=== PATIENT | female | born 1985 | race Caucasian/White ===

== ENCOUNTER → 2016-10-27 | Outpatient (CLI) | payer OTHER ==
[~2016-10-27] MED LIST: ACET-1256 PO; AZITTAB PO; CEFT1INJ57 IM; ONDA4TAB9 PO
[2016-10-27 10:07] LABS: CHOLESTEROL 257 mg/dl (0-200); GLUCOSE,FASTING 90 mg/dl (70-99); TRIGLYCERIDES 157 mg/dl (0-150); VERY LOW DENSITY LIPOPROT CALC 31 mg/dl
[2016-10-27 10:17] LABS: CHOLESTEROL/HDL RATIO 7.1; HDL CHOLESTEROL 36 mg/dl
== END | disposition home or self-care (01) ==
LOC: C.LAB 08:07
PROVIDERS: ATTEND Physician Assistant Medical
DX: Z00.00 Encounter for general adult medical examination without abnormal findings (principal)

== ENCOUNTER → 2017-09-28 | Outpatient (CLI) | payer OTHER ==
[~2017-09-28] MED LIST changes: +FIBE1CHW PO; +MULT20CH PO
[2017-09-28 12:20] LABS: BASO % 0.5 %; BASO ABS # 0.04 K/uL (0-0.2); EOS % 1.6 %; EOS ABS # 0.12 K/uL (0-0.5); HEMATOCRIT 39.3 % (37-47); HEMOGLOBIN 12.8 g/dL (12.0-16.0); IG# 0.01 K/uL (0.00-0.02); LYMPH % 34.9 %; LYMPH ABS # 2.58 K/uL (1.2-3.4); MEAN CELL VOLUME 81.4 fL (80-100); MEAN CORPUSCULAR HEMOGLOBIN 26.5 pg (25-34); MEAN CORPUSCULAR HGB CONC 32.6 g/dl (32-36); MEAN PLATELET VOLUME 9.9 fL (7.4-10.4); MONO ABS # 0.59 K/uL (0.11-0.59); NEUT % 54.9 %; NEUT ABS # 4.06 K/uL (1.4-6.5); PLATELET COUNT 407 K/uL (130-400); RED CELL DISTRIBUTION WIDTH CV 14.9 % (11.5-14.5); RED CELL DISTRIBUTION WIDTH SD 44.1 fL (36.4-46.3)
[2017-09-28 13:11] LABS: ALT/SGPT 24 U/L (12-78); AST/SGOT 13 U/L (15-37); BLOOD UREA NITROGEN 17 mg/dl (7-18); CALCIUM 9.2 mg/dl (8.5-10.1); CARBON DIOXIDE 28 mmol/L (21-32); CREATININE 0.69 mg/dl (0.60-1.20); GLUCOSE 94 mg/dl (70-99); POTASSIUM 4.7 mmol/L (3.5-5.1); SODIUM 138 mmol/L (136-145)
[2017-09-28 13:12] LABS: ALKALINE PHOSPHATASE 61 U/L (45-117); CHOLESTEROL 216 mg/dl (0-200); LDL CHOLESTEROL CALCULATED 155 mg/dl; TOTAL PROTEIN 7.9 gm/dl (6.4-8.2)
== END | disposition home or self-care (01) ==
LOC: C.LAB 10:22
PROVIDERS: ATTEND Physician Assistant Medical
DX: Z00.00 Encounter for general adult medical examination without abnormal findings (principal); R42 Dizziness and giddiness

== ENCOUNTER 2017-10-09 15:50 | Emergency (ER) | payer OTHER ==
[~2017-10-09] VITALS: Ht 171.5 cm; Wt 97.0 kg
[~2017-10-09 15:50] MED LIST changes: -FIBE1CHW PO; -MULT20CH PO
[2017-10-09 16:06] VITALS: TEMP 36.9; Ht 171.5 cm; Wt 97.0 kg
[2017-10-09] MEDS ORDERED: SODIUM CHLORIDE 0.9% 1000ML 1,000 ML IV STA (17:36)
[2017-10-09 18:03] LABS: BASO % 0.3 %; BASO ABS # 0.03 K/uL (0-0.2); EOS ABS # 0.22 K/uL (0-0.5); HEMATOCRIT 40.6 % (37-47); HEMOGLOBIN 13.2 g/dL (12.0-16.0); IG# 0.02 K/uL (0.00-0.02); LYMPH % 27.8 %; LYMPH ABS # 3.01 K/uL (1.2-3.4); MEAN CELL VOLUME 80.1 fL (80-100); MEAN CORPUSCULAR HGB CONC 32.5 g/dl (32-36); MEAN PLATELET VOLUME 9.7 fL (7.4-10.4); MONO % 9.4 %; MONO ABS # 1.02 K/uL (0.11-0.59); NEUT % 60.3 %; NEUT ABS # 6.52 K/uL (1.4-6.5); PLATELET COUNT 333 K/uL (130-400); RED CELL DISTRIBUTION WIDTH CV 15.1 % (11.5-14.5); RED CELL DISTRIBUTION WIDTH SD 43.6 fL (36.4-46.3); WHITE BLOOD COUNT 10.82 K/uL (4.8-10.8)
--- NOTE | 2017-10-09 18:06 | DIAGNOSTIC IMAGING REPORT ---
CHEST ONE VIEW PORTABLE CLINICAL HISTORY: Atypical chest pain COMPARISON STUDY: No previous studies for comparison. FINDINGS: The cardiac and mediastinal contours are normal. There is no evidence of focal pulmonary consolidation. There is no evidence of failure. No pleural effusions are visualized.[ IMPRESSION: No active disease in the chest. Electronically signed by: Marco A Palencia M.D. 10/09/2017 6:05 PM Dictated Date/Time: 10/09/2017 6:05 PM
[2017-10-09 18:09] VITALS: O2SAT 98
[2017-10-09] MEDS ORDERED: MULT20CH PO (18:11)
[2017-10-09] MEDS ORDERED: FIBE1CHW PO (18:11)
[2017-10-09 18:16] LABS: ALBUMIN 4.2 gm/dl (3.4-5.0); ALT/SGPT 25 U/L (12-78); AST/SGOT 16 U/L (15-37); BLOOD UREA NITROGEN 14 mg/dl (7-18); CALCIUM 9.2 mg/dl (8.5-10.1); CARBON DIOXIDE 26 mmol/L (21-32); CREATININE 0.72 mg/dl (0.60-1.20); GLUCOSE 87 mg/dl (70-99); LIPASE 233 U/L (73-393); POTASSIUM 4.1 mmol/L (3.5-5.1); SODIUM 139 mmol/L (136-145)
--- NOTE | 2017-10-09 18:18 | DIAGNOSTIC IMAGING REPORT ---
CT HEAD WITHOUT CONTRAST (CT) CLINICAL HISTORY: Headache, dizziness, nausea. COMPARISON STUDY: 03/18/2008 TECHNIQUE: Axial CT of the brain is performed from the vertex to the skull base. IV contrast was not administered for this examination. A dose lowering technique was utilized adhering to the principles of ALARA. CT DOSE: 614.27 mGy.cm FINDINGS: No intra or extra-axial mass lesions are visualized. There is no CT evidence of acute cortical infarction. There is no evidence of midline shift. There is no acute hemorrhage. No calvarial fractures are visualized. There is no evidence of pathologic ventricular dilatation. There is no evidence of acute sinusitis IMPRESSION: Normal noncontrast head CT. Electronically signed by: Marco A Palencia M.D. 10/09/2017 6:17 PM Dictated Date/Time: 10/09/2017 6:16 PM
[2017-10-09 18:21] LABS: ALKALINE PHOSPHATASE 66 U/L (45-117); TOTAL PROTEIN 7.9 gm/dl (6.4-8.2)
--- NOTE | 2017-10-09 19:24 | EMERGENCY ROOM VISIT NOTE ---
History Report prepared by Siria: Hammad Webb Under the Supervision of: Dr. Venkat Dunham M.D. First contact with patient: 17:09 Chief Complaint: NEURO SYMPTOMS Stated Complaint: DIZZINESS, ARM/LEG NUMBNESS, TINGLING Nursing Triage Summary: Patient presents ambulatory to triage with c/o dizziness, headache, and nausea for the last month States she has been to see her PCP and was "basically told to deal with it" Patient states she "feels like she could pass out at times" History of Present Illness The patient is a 32 year old white female with a past medical history of kidney stones, (x5) and tubal ligation who presents to the ED with a cc of intermittent neurologic symptoms beginning over a month ago. Her symptoms include episodes of dizziness and bilateral arm and leg numbness/tingling ( symptoms are currently present). She reports that she developed a headache at the bottom of the back of her head today. Patient states that she normally only experiences her symptoms while very active, but was at her desk all day today. Patient reports having a recent ear drum rupture a little over a month ago. Negative abnormal vaginal bleeding or leg swelling. Patient has a history of chronic chest pain with uncertain cause (deemed non-cardiac). She has a history of chronic ringing in her right ear. Source of History: patient Onset: Over a month ago Symptom Intensity: dizziness, and numbness/tingling to the extremities Quality: other (neurologic symptoms) Timing: intermittent Associated Symptoms: + headache (bottom of back of head) Note: Negative abnormal vaginal bleeding or leg swelling. Review of Systems See HPI for pertinent positives and negatives. A total of ten systems were reviewed and were otherwise negative. Past Medical & Surgical Medical Problems: (1) Bilateral tubal ligation (2) section (3) Deliveries by Family History No pertinent family history stated. Social History Smoking Status: Never Smoker Alcohol Use: none Marital Status: Housing Status: lives with family Occupation Status: employed Current/Historical Medications Scheduled Fiber (Fiber Select Gummies), 2 TABS PO DAILY Multiple Vitamins W/ Minerals (Adult One Daily Gummies), 1 TAB PO DAILY Allergies Coded Allergies: Latex1 -Allergic Contact Dermititis (Verified Allergy, Intermediate, HIVES , 08/19/15) Physical Exam Vital Signs Date Time Temp Pulse Resp B/P (MAP) Pulse Ox O2 Delivery O2 Flow Rate FiO2 10/09/17 18:09 98 Room Air 10/09/17 18:07 64 17 113/79 99 10/09/17 17:52 81 10/09/17 17:12 132/73 10/09/17 16:06 36.9 83 16 122/85 97 Room Air Physical Exam GENERAL: Awake, alert, well-appearing, NAD HENT: Normocephalic, atraumatic. EYES: Normal conjunctiva. Sclera non-icteric. PERRL. No anisocoria. NECK: Supple. No nuchal rigidity. FROM. RESPIRATORY: CTAB, no rhonchi, wheezing, crackles CARDIAC: RRR, no MRG ABDOMEN: Soft, NTND, BS+ MSK: No chest wall TTP, no LE edema NEURO: CN 2-12 intact, 5/5 upper and lower extremity strength, no dysmetria, no drift, good finger to nose, no sensory deficits. Finger count grossly normal. Questionable decreased sensation to the bilateral upper extremities. SKIN: No rash or jaundice noted. Medical Decision & Procedures ER Provider Diagnostic Interpretation: Radiology results as stated below per my review and radiologist interpretation: CT HEAD WITHOUT CONTRAST (CT) FINDINGS: No intra or extra-axial mass lesions are visualized. There is no CT evidence of acute cortical infarction. There is no evidence of midline shift. There is no acute hemorrhage. No calvarial fractures are visualized. There is no evidence of pathologic ventricular dilatation. There is no evidence of acute sinusitis IMPRESSION: Normal noncontrast head CT. Electronically signed by: Marco A Palencia M.D. 10/09/2017 6:17 PM CHEST ONE VIEW PORTABLE FINDINGS: The cardiac and mediastinal contours are normal. There is no evidence of focal pulmonary consolidation. There is no evidence of failure. No pleural effusions are visualized.[ IMPRESSION: No active disease in the chest. Electronically signed by: Marco A Palencia M.D. 10/09/2017 6:05 PM Laboratory Results 10/09/17 17:45 Red Blood Count 5.07, Mean Corpuscular Volume 80.1, Mean Corpuscular Hemoglobin 26.0, Mean Corpuscular Hemoglobin Concent 32.5, Mean Platelet Volume 9.7, Neutrophils (%) (Auto) 60.3, Lymphocytes (%) (Auto) 27.8, Monocytes (%) (Auto) 9.4, Eosinophils (%) (Auto) 2.0, Basophils (%) (Auto) 0.3, Neutrophils # (Auto) 6.52, Lymphocytes # (Auto) 3.01, Monocytes # (Auto) 1.02, Eosinophils # (Auto) 0.22, Basophils # (Auto) 0.03 10/09/17 17:45 Test 10/09/17 17:45 White Blood Count 10.82 K/uL (4.8-10.8) Red Blood Count 5.07 M/uL (4.2-5.4) Hemoglobin 13.2 g/dL (12.0-16.0) Hematocrit 40.6 % (37-47) Mean Corpuscular Volume 80.1 fL (80-100) Mean Corpuscular Hemoglobin 26.0 pg (25-34) Mean Corpuscular Hemoglobin Concent 32.5 g/dl (32-36) Platelet Count 333 K/uL (130-400) Mean Platelet Volume 9.7 fL (7.4-10.4) Neutrophils (%) (Auto) 60.3 % Lymphocytes (%) (Auto) 27.8 % Monocytes (%) (Auto) 9.4 % Eosinophils (%) (Auto) 2.0 % Basophils (%) (Auto) 0.3 % Neutrophils # (Auto) 6.52 K/uL (1.4-6.5) Lymphocytes # (Auto) 3.01 K/uL (1.2-3.4) Monocytes # (Auto) 1.02 K/uL (0.11-0.59) Eosinophils # (Auto) 0.22 K/uL (0-0.5) Basophils # (Auto) 0.03 K/uL (0-0.2) RDW Standard Deviation 43.6 fL (36.4-46.3) RDW Coefficient of Variation 15.1 % (11.5-14.5) Immature Granulocyte % (Auto) 0.2 % Immature Granulocyte # (Auto) 0.02 K/uL (0.00-0.02) Anion Gap 6.0 mmol/L (3-11) Est Creatinine Clear Calc Drug Dose 132.9 ml/min Estimated GFR () 126.6 Estimated GFR (Non- 109.3 BUN/Creatinine Ratio 19.6 (10-20) Calcium Level 9.2 mg/dl (8.5-10.1) Magnesium Level 2.1 mg/dl (1.8-2.4) Total Bilirubin 0.2 mg/dl (0.2-1) Direct Bilirubin < 0.1 mg/dl (0-0.2) Aspartate Amino Transf (AST/SGOT) 16 U/L (15-37) Alanine Aminotransferase (ALT/SGPT) 25 U/L (12-78) Alkaline Phosphatase 66 U/L (45-117) Troponin I < 0.015 ng/ml (0-0.045) Total Protein 7.9 gm/dl (6.4-8.2) Albumin 4.2 gm/dl (3.4-5.0) Lipase 233 U/L (73-393) Lyme Disease IgG Antibody NEG (NEG) Lyme Disease IgM Antibody NEG (NEG) Laboratory results reviewed by me Medications Administered Medications (Trade) Dose Ordered Sig/Camelia Route Start Time Stop Time Status Last Admin Dose Admin Sodium Chloride 1,000 ml @ 999 mls/hr Q1H1M STAT IV 10/09/17 17:36 10/09/17 18:36 DC 10/09/17 18:09 999 MLS/HR ECG Per My Interpretation Indication: other (dizziness) Rate (beats per minute): 51 Rhythm: sinus bradycardia Findings: other (Normal intervals. Normal axis. No STS changes or TWI. ) ED Course 1724: The patient was evaluated in room A10. A complete history and physical exam was performed. 1900: I updated the patient on her test results. 1924: I reevaluated the patient. Discussed results and discharge instructions: she verbalized understanding and agreement. The patient is ready for discharge. Medical Decision Nursing notes reviewed. Ancillary studies and prior records reviewed. The patient is a 32 year old white female with a past medical history of kidney stones, (x5) and tubal ligation who presents to the ED with a cc of intermittent neurologic symptoms beginning over a month ago. Differential diagnosis: Etiologies such as benign positional vertigo, dehydration, hypovolemia, anemia, tumor, infection, hypoglycemia, electrolyte abnormalities, cardiac sources, intracerebral event, toxicologic, neurologic, as well as others were entertained. Patient was seen and evaluated the bedside. Patient had been complaining of some persistent lightheadedness/dizziness. Patient also had complained of feeling like she has some tingling or numbness in her bilateral upper and lower extremities. Patient denies any recent infectious symptoms. Patient denies any family history of something like MS. Patient denies any recent trauma. Patient did complain of some mild neck pain at the base of her head. Patient has full range of motion has a nonfocal neurologic exam. Patient does have some perceived decreased sensation in her bilateral upper extremities over the forearm. The patient does describe this as tingling in nature. Patient otherwise has an unremarkable exam. Patient did have blood work completed, EKG, troponin, TSH, electrolytes, chest x -ray, CT brain. Patient CT brain negative acute. Patient's other blood work is fairly unremarkable. Patient is not anemic. TSH normal. EKG without any overt arrhythmia and no ischemic changes. Troponin is negative. Patient's Lyme 's was negative. I did discuss that while we may not know exactly what is causing her symptoms she was told that for the lightheadedness to make sure that she is careful when she changes positions, hydrate liberally with clear liquids and avoid things like alcohol and too much caffeine. Patient was told she did have persistent symptoms she should follow-up with PCP and/or discuss it with a heart doctor. Patient's tingling in the bilateral upper and lower extremities is not true numbness less likely stroke or TIA given her lack of risk factors as well as a negative CT scan given the duration of symptoms and the fact that she does not have true numbness in any of her extremities.. Less likely metabolic given her blood work. Patient was given strict follow-up, discharge, and return precautions. All questions were answered. Patient was deemed suitable for outpatient follow-up at this time. Patient agreed with the plan of care and was safely discharged home. Medication Reconcilliation Current Medication List: was personally reviewed by me Blood Pressure Screening Patient's blood pressure: Normal blood pressure Blood pressure disposition: Did not require urgent referral Impression Primary Impression: Lightheadedness Additional Impression: Tingling Scribe Attestation The scribe's documentation has been prepared under my direction and personally reviewed by me in its entirety. I confirm that the note above accurately reflects all work, treatment, procedures, and medical decision making performed by me. Departure Information Dispostion Home / Self-Care Referrals Nikky Ervin DO (PCP) Patient Instructions Dizziness Fainting Poss Causes, My [facility] Additional Instructions Please return to the emergency department if you have worsening or recurrent symptoms not amenable to at-home treatment. Please call for a follow-up appointment with her primary care physician. Please take your medications as prescribed. If you have other concerns and/or complaints please feel free to also call your primary care physician's office or return the ED for further evaluation, management, and treatment. You may take 800 mg Ibuprofen every 6 hours as needed for pain/fever with food unless told by your physician not to take NSAIDs. You may take tylenol 1000 mg every 6 hours as needed for pain/fever unless told by your physician to not take it or have liver problems. You may take motrin and tylenol separately or at the same time. Hydrate liberally with clear liquids. Consider follow-up with your PCP and/or heart doctor if you do have persistent lightheadedness. Please be careful as you change positions as this may make your lightheadedness worse. Take your medications as prescribed. You have been examined and treated today on an emergency basis only. This is not a substitute for, or an effort to provide, complete comprehensive medical care. It is impossible to recognize and treat all injuries or illnesses in a single emergency department visit. It is therefore important that you follow up closely with [facility], your PCP, and/or your specialist(s). Call as soon as possible for an appointment. Thank you for your time and consideration. I look forward to speaking with you again soon. Please don't hesitate to call us if you have any questions. Problem Qualifiers
[2017-10-09 19:52] VITALS: BP 129/73; PULSE 75; O2SAT 98
== END 2017-10-09 19:53 | disposition home or self-care (01) ==
LOC: C.EDB 15:52 → C.EDA 19:53
DX: R42 Dizziness and giddiness (principal); R20.2 Paresthesia of skin

== ENCOUNTER 2019-10-02 04:36 | Inpatient (IN) ==
--- OUTSIDE RECORDS SUMMARY | 2019-10-02 04:39 | External Medical Summary | Continuity of Care Document ---
:1985 Author Name Dragan Balderas, Provider Address Unavailable Unavailable , Care Team Providers Name Role Phone Philipp Booth PA-C Unavailable [email or web address] Kip GORE Unavailable Unavailable Unavailable Unavailable Unavailable Problems Encounter for routine follow-up (V24.2) (Z39.2) Dental abscess (522.5) (K04.7) Exudative pharyngitis (462) (J02.9) Exposure to communicable disease (V01.9) (Z20.9) Urinary tract infection, acute (599.0) (N39.0) Dyspareunia (625.0) Vaginal dryness (625.8) (N89.8) MRSA infection (041.12) (A49.02) Vaginitis (616.10) (N76.0) Dyslipidemia (high LDL; low HDL) (272.4) (E78.5) Wellness examination (V70.0) (Z00.00) Abdominal pain (789.00) (R10.9) Female genital symptoms (625.9) (N94.9) Allergies and Adverse Reactions No Known Drug Allergies (Allergy) Medications metroNIDAZOLE 500 MG Oral Tablet; TAKE 1 TABLET BY MOUTH TWICE A DAY FOR 10 DAYS. CHIKI Booth Start: 17-Aug-2017 Quantity: 20 Refills: 5 Ezetimibe-Simvastatin 10-40 MG Oral Tablet; TAKE 1 TAB LET DAILY IN THE EVENING. CHIKI Booth Start: 01-Nov-2016 Quantity: 30 Refills: 11 Fluconazole 150 MG Oral Tablet; TAKE DIRECTED. CURT Booth Start: 22-Dec-2013 Quantity: 2 Refills: 5 Procedures History of Renal Lithotripsy Status: Com pleted History of Oral Surgery Tooth Extraction Status: Completed History of Section Status: Comp leted Immunizations Fluzone Quadrivalent 0.5 ML Intramuscular Suspension On: Lot #: [id number], [employer] Tubersol 5 UNIT/0.1ML Intradermal Solution On: 21-Jun-2018 8: 52 Lot #: [id number], [employer] Tubersol 5 UNIT/0.1ML Intradermal Solution On: 28-Jun-2018 1 1:44 Lot #: [id number], [employer] Social History - Smoking Status Never smoked tobacco Plan of Treatment Planned Observations Planned Goals not documented Results No Known Results Results not documented Encounters Appointment; [facility], Nursing Station 28-Jun-2018 13:45 Encounter Diagnosis: Problem not documented Appointment; [facility], Nursing Station 21-Jun-2018 9:00 Encounter Diagnosis: Problem not documented
--- OUTSIDE RECORDS SUMMARY | 2019-10-02 04:39 | External Medical Summary | Continuity of Care Document ---
:1985 Author Name Dragan Balderas, Provider Address Unavailable Unavailable , Care Team Providers Name Role Phone Philipp Booth PA-C Unavailable [email or web address] Kip GORE Unavailable Unavailable Unavailable Unavailable Unavailable Problems Abdominal pain (789.00) (R10.9) Female genital symptoms (625.9) (N94.9) Dental abscess (522.5) (K04.7) Exudative pharyngitis (462) (J02.9) Exposure to communicable disease (V01.9) (Z20.9) Urinary tract infection, acute (599.0) (N39.0) Dyspareunia (625.0) Vaginal dryness (625.8) (N89.8) MRSA infection (041.12) (A49.02) Encounter for routine follow-up (V24.2) (Z39.2) Vaginitis (616.10) (N76.0) Dyslipidemia (high LDL; low HDL) (272.4) (E78.5) Wellness examination (V70.0) (Z00.00) Allergies and Adverse Reactions No Known Drug Allergies (Allergy) Medications Fluconazole 150 MG Oral Tablet; TAKE DIRECTED. CURT Booth Start: 22-Dec-2013 Quantity: 2 Refills: 5 Ezetimibe-Simvastatin 10-40 MG Oral Tablet; TAKE 1 TAB LET DAILY IN THE EVENING. CHIKI Booth Start: 01-Nov-2016 Quantity: 30 Refills: 11 metroNIDAZOLE 500 MG Oral Tablet; TAKE 1 TABLET BY MOUTH TWICE A DAY FOR 10 DAYS. CHIKI Booth Start: 17-Aug-2017 Quantity: 20 Refills: 5 Procedures History of Renal Lithotripsy Status: Com pleted History of Oral Surgery Tooth Extraction Status: Completed History of Section Status: Comp leted Immunizations Fluzone Quadrivalent 0.5 ML Intramuscular Suspension On: Lot #: [id number], [employer] Tubersol 5 UNIT/0.1ML Intradermal Solution On: 21-Jun-2018 8: 52 Lot #: [id number], [employer] Tubersol 5 UNIT/0.1ML Intradermal Solution On: 28-Jun-2018 1 1:44 Lot #: [id number], [employer] Social History - Smoking Status Never smoked tobacco Plan of Treatment Planned Observations Planned Goals not documented Results No Known Results Results not documented Encounters Appointment; [facility], Nursing Station 28-Jun-2018 13:45 Encounter Diagnosis: Problem not documented Appointment; [facility], Nursing Station 21-Jun-2018 9:00 Encounter Diagnosis: Problem not documented
--- NOTE | 2019-10-02 04:59 | Emergency Department Note ---
History of Present Illness General Chief complaint: Mental Health Evaluation Stated complaint: 302 Time Seen by Provider: 10/02/19 04:43 Source: patient Mode of arrival: ambulatory Limitations: no limitations History of Present Illness Provider complaint: mental health evaluation/302 This is a 34-year-old female who presents the emergency department via law enforcement as a 302 warrant patient brought in due to suicidal statements made. Patient's is the petitioner. Petition states that patient has been seeing another man and he and the patient had been discussing divorce. Upon a another discussion this evening, patient made a suicidal statement and then took out 1 of his handguns. He states that he then removed all the handguns from their residence and called police. He states patient has a history of mental illness and has made suicidal statements in the past. Patient admits to a history of depression, but states she takes her Prozac and feels that has helped tremendously. Patient has a new appointment with a counselor this Sunday. Patient denies any other change in her overall health. Pt seen during a time of high acuity and national emergency pandemic while wearing PPE. Home Medications Home Medications Medication Instructions Recorded Confirmed Type atorvastatin 10 mg PO HS 10/02/19 10/02/19 History fluoxetine [Prozac] 60 mg PO DAILY 10/02/19 10/02/19 History Allergies Allergy/AdvReac Type Severity Reaction Status Date / Time latex Allergy Intermediate SKIN Verified 05/15/18 12:19 IRRITATION, REDNESS adhesive Allergy Redness of Verified 10/02/19 04:54 Skin chlorhexidine Allergy Rash Verified 10/02/19 04:54 Past Med/Surg History Medical History (Updated 10/02/19 @ 06:41 by Isabel Edwards DO) Depression (Acute) Hyperlipidemia Surgical History (Updated 05/15/18 @ 18:45 by Haroldo Lyle) History of cervical spinal surgery Family History (Updated 05/15/18 @ 18:46 by Haroldo Lyle) Other Family history non-contributory Social History Preferred Language: Swedish Communication Ability: Effective Spanish Instructor Required: No Beliefs That Will Affect Care: None Feels Safe at Home: Yes Smoking Status: Never smoker Review of Systems See HPI for pertinent positives & negatives. and A total of 10 systems reviewed and were otherwise negative Physical Exam Vital Signs Vital Signs - 24 hr 10/02/19 04:38 10/02/19 06:19 Temperature 36.9 C Temperature Source Oral Pulse Rate 97 H Pulse Rate [Right Finger] 88 Respiratory Rate 16 14 Respiratory Effort / Characteristics Non-Labored Spontaneous Respiratory Depth Normal Respiratory Pattern Regular Blood Pressure 154/89 H Blood Pressure [Right Arm] 103/71 Blood Pressure Mean 110 Blood Pressure Mean [Right Arm] 81 Pulse Oximetry 99 100 Oxygen Delivery Method Room Air Room Air Sepsis Recent Fever Within 48 Hours No Sepsis New/Unexplained Change in Mental Status No Sepsis Action Taken by Nursing No Action Required GENERAL: alert, well appearing, well nourished, no distress, non-toxic, anxious EYE EXAM: normal conjunctiva, PERRL and EOM's grossly intact OROPHARYNX: no exudate, no erythema, lips, buccal mucosa, and tongue normal and mucous membranes are moist NECK: supple, no nuchal rigidity, no adenopathy, non-tender LUNGS: Clear to auscultation. Normal chest wall mechanics, no w/r/r HEART: no murmurs, S1 normal and S2 normal ABDOMEN: abdomen soft, non-tender, normo-active bowel sounds, no masses, no rebound or guarding. BACK: Back is symmetrical on inspection and there is no deformity, no midline tenderness, no CVA tenderness. SKIN: no rashes and no bruising UPPER EXTREMITIES: upper extremities are grossly normal. FROM, nml pulses b/l. LOWER EXTREMITIES: No pitting edema. FROM, nml pulses b/l. NEURO EXAM: Normal sensorium, cranial nerves II-XII grossly intact, normal speech, no gross weakness of arms, no gross weakness of legs. Gross sensation intact. Course Course 0600: Pt seen and evaluated by darryn Salas mgr. Pt agreeable with inpatient treatment. 0711: Patient signed out to Dr. Zimmerman at change of shift. Administered Medications Atorvastatin Calcium (Lipitor) 10 mg PO HS [facility] Stop: 11/01/19 21:59 Last Admin: 10/02/19 21:04 Dose: 10 mg Documented by: [id number] Discontinued Medications Fluoxetine HCl (Prozac) 60 mg PO NOW ONE Stop: 10/02/19 09:51 Last Admin: 10/02/19 10:08 Dose: 60 mg Documented by: [id number] Medical Decision Making Differential Diagnosis Differential diagnoses considered include mood disorder, infection, hypoglycemia, electrolyte abnormalities, cardiac sources, intracerebral event, toxicologic, neurologic, as well as others. Medical Records Attestation: I reviewed the patient's medical records. Home Medications Current Medication List: was personally reviewed by me Laboratory Data Attestation: I reviewed the patient's lab results. Result diagrams: 10/02/19 05:29 10/02/19 05:29 Lab Results 10/02/19 10/02/19 10/02/19 Range/Units 04:45 04:45 05:29 WBC 12.22 H (4.8-10.8) K/uL RBC 4.16 L (4.2-5.4) M/uL Hgb 9.5 L (12.0-16.0) g/dL Hct 31.0 L (37-47) % MCV 74.5 L (80-100) fL MCH 22.8 L (25-34) pg MCHC 30.6 L (32-36) g/dL RDW Std Deviation 40.6 (36.4-46.3) fL RDW Coeff of Michael 15.0 H (11.5-14.5) % Plt Count 434 H (130-400) K/uL MPV 8.9 (7.4-10.4) fL Immature Gran % (Auto) 0.2 % Neut % (Auto) 78.0 % Lymph % (Auto) 14.9 % Rolette % (Auto) 6.5 % Eos % (Auto) 0.2 % Baso % (Auto) 0.2 % Immature Gran # (Auto) 0.03 H (0.00-0.02) K/uL Neut # (Auto) 9.51 H (1.4-6.5) K/uL Lymph # (Auto) 1.82 (1.2-3.4) K/uL Rolette # (Auto) 0.80 H (0.11-0.59) K/uL Eos # (Auto) 0.03 (0-0.5) K/uL Baso # (Auto) 0.03 (0-0.2) K/uL Ovalocytes 1+ Sodium (136-145) mmol/L Potassium (3.5-5.1) mmol/L Chloride (98-107) mmol/L Carbon Dioxide (21-32) mmol/L Anion Gap (3-11) BUN (7-18) mg/dl Creatinine (0.6-1.2) mg/dl Est Cr Clr Drug Dosing ml/min Est GFR ( Amer) Est GFR (Non-Af Amer) BUN/Creatinine Ratio (10-20) Glucose (70-99) mg/dl Calcium (8.5-10.1) mg/dl Total Bilirubin (0.2-1) mg/dl AST (15-37) U/L ALT (12-78) U/L Alkaline Phosphatase (45-117) U/L Total Protein (6.4-8.2) gm/dl Albumin (3.4-5.0) gm/dl Globulin (2.5-4.0) gm/dl Albumin/Globulin Ratio (0.9-2) TSH (0.300-4.500) uIu/ml HCG, Qual (Negative) Urine Color Yellow Urine Appearance Clear (Clear) Urine pH 5.5 (4.5-7.5) Ur Specific [place] 1.027 (1.000-1.030) Urine Protein Negative (Negative) Urine Glucose (UA) Negative (Negative) Urine Ketones Trace H (Negative) Urine Blood Negative (Negative) Urine Nitrite Negative (Negative) Urine Bilirubin Negative (Negative) Urine Urobilinogen Negative (Negative) Ur Leukocyte Esterase Negative (Negative) Salicylates (2.8-20) mg/dl Urine Opiates Screen Neg (Neg) Ur Methadone, Qual Neg (Neg) Acetaminophen (10-30) ug/ml Urine Barbiturates Neg (Neg) Ur Phencyclidine (PCP) Neg (Neg) U Amphetamin/Meth Scrn Neg (Neg) MDMA (Ecstasy) Screen Neg (Neg) U Benzodiazepines Scrn Neg (Neg) Ur Cocaine Metabolite Neg (Neg) U Marijuana (THC) Screen Neg (Neg) Ethyl Alcohol mg/dL (0-3) mg/dl 10/02/19 10/02/19 10/02/19 Range/Units 05:29 05:29 05:29 WBC (4.8-10.8) K/uL RBC (4.2-5.4) M/uL Hgb (12.0-16.0) g/dL Hct (37-47) % MCV (80-100) fL MCH (25-34) pg MCHC (32-36) g/dL RDW Std Deviation (36.4-46.3) fL RDW Coeff of Michael (11.5-14.5) % Plt Count (130-400) K/uL MPV (7.4-10.4) fL Immature Gran % (Auto) % Neut % (Auto) % Lymph % (Auto) % Rolette % (Auto) % Eos % (Auto) % Baso % (Auto) % Immature Gran # (Auto) (0.00-0.02) K/uL Neut # (Auto) (1.4-6.5) K/uL Lymph # (Auto) (1.2-3.4) K/uL Rolette # (Auto) (0.11-0.59) K/uL Eos # (Auto) (0-0.5) K/uL Baso # (Auto) (0-0.2) K/uL Ovalocytes Sodium 140 (136-145) mmol/L Potassium 3.8 (3.5-5.1) mmol/L Chloride 109 H (98-107) mmol/L Carbon Dioxide 23 (21-32) mmol/L Anion Gap 8.0 (3-11) BUN 13 (7-18) mg/dl Creatinine 0.88 (0.6-1.2) mg/dl Est Cr Clr Drug Dosing 103.4 ml/min Est GFR ( Amer) 98.0 Est GFR (Non-Af Amer) 84.5 BUN/Creatinine Ratio 14.6 (10-20) Glucose 136 H (70-99) mg/dl Calcium 9.0 (8.5-10.1) mg/dl Total Bilirubin 0.3 (0.2-1) mg/dl AST 15 (15-37) U/L ALT 24 (12-78) U/L Alkaline Phosphatase 70 (45-117) U/L Total Protein 7.5 (6.4-8.2) gm/dl Albumin 3.9 (3.4-5.0) gm/dl Globulin 3.6 (2.5-4.0) gm/dl Albumin/Globulin Ratio 1.1 (0.9-2) TSH 1.270 (0.300-4.500) uIu/ml HCG, Qual (Negative) Urine Color Urine Appearance (Clear) Urine pH (4.5-7.5) Ur Specific [place] (1.000-1.030) Urine Protein (Negative) Urine Glucose (UA) (Negative) Urine Ketones (Negative) Urine Blood (Negative) Urine Nitrite (Negative) Urine Bilirubin (Negative) Urine Urobilinogen (Negative) Ur Leukocyte Esterase (Negative) Salicylates < 1.7 L (2.8-20) mg/dl Urine Opiates Screen (Neg) Ur Methadone, Qual (Neg) Acetaminophen < 2 L (10-30) ug/ml Urine Barbiturates (Neg) Ur Phencyclidine (PCP) (Neg) U Amphetamin/Meth Scrn (Neg) MDMA (Ecstasy) Screen (Neg) U Benzodiazepines Scrn (Neg) Ur Cocaine Metabolite (Neg) U Marijuana (THC) Screen (Neg) Ethyl Alcohol mg/dL < 3.0 (0-3) mg/dl 10/02/19 Range/Units 05:29 WBC (4.8-10.8) K/uL RBC (4.2-5.4) M/uL Hgb (12.0-16.0) g/dL Hct (37-47) % MCV (80-100) fL MCH (25-34) pg MCHC (32-36) g/dL RDW Std Deviation (36.4-46.3) fL RDW Coeff of Michael (11.5-14.5) % Plt Count (130-400) K/uL MPV (7.4-10.4) fL Immature Gran % (Auto) % Neut % (Auto) % Lymph % (Auto) % Rolette % (Auto) % Eos % (Auto) % Baso % (Auto) % Immature Gran # (Auto) (0.00-0.02) K/uL Neut # (Auto) (1.4-6.5) K/uL Lymph # (Auto) (1.2-3.4) K/uL Rolette # (Auto) (0.11-0.59) K/uL Eos # (Auto) (0-0.5) K/uL Baso # (Auto) (0-0.2) K/uL Ovalocytes Sodium (136-145) mmol/L Potassium (3.5-5.1) mmol/L Chloride (98-107) mmol/L Carbon Dioxide (21-32) mmol/L Anion Gap (3-11) BUN (7-18) mg/dl Creatinine (0.6-1.2) mg/dl Est Cr Clr Drug Dosing ml/min Est GFR ( Amer) Est GFR (Non-Af Amer) BUN/Creatinine Ratio (10-20) Glucose (70-99) mg/dl Calcium (8.5-10.1) mg/dl Total Bilirubin (0.2-1) mg/dl AST (15-37) U/L ALT (12-78) U/L Alkaline Phosphatase (45-117) U/L Total Protein (6.4-8.2) gm/dl Albumin (3.4-5.0) gm/dl Globulin (2.5-4.0) gm/dl Albumin/Globulin Ratio (0.9-2) TSH (0.300-4.500) uIu/ml HCG, Qual Negative (Negative) Urine Color Urine Appearance (Clear) Urine pH (4.5-7.5) Ur Specific [place] (1.000-1.030) Urine Protein (Negative) Urine Glucose (UA) (Negative) Urine Ketones (Negative) Urine Blood (Negative) Urine Nitrite (Negative) Urine Bilirubin (Negative) Urine Urobilinogen (Negative) Ur Leukocyte Esterase (Negative) Salicylates (2.8-20) mg/dl Urine Opiates Screen (Neg) Ur Methadone, Qual (Neg) Acetaminophen (10-30) ug/ml Urine Barbiturates (Neg) Ur Phencyclidine (PCP) (Neg) U Amphetamin/Meth Scrn (Neg) MDMA (Ecstasy) Screen (Neg) U Benzodiazepines Scrn (Neg) Ur Cocaine Metabolite (Neg) U Marijuana (THC) Screen (Neg) Ethyl Alcohol mg/dL (0-3) mg/dl Blood Pressure Blood Pressure Findings: Elevated blood pressure Blood Pressure Disposition: Referred to patients primary care provider [facility] Narrative Patient here after being brought in as a 302 warrant by law enforcement. Patient in the middle of domestic issues and evolving divorce with her . They do still reside together. Patient admits to having a current boyfriend. It is unclear based on the petitioning statements whose version of the story is more accurate. There were no other corroborating witnesses to otherwise lend credence to either the patient or the petitioning 's story. Patient does have a history of depression. Patient's brother did commit suicide. Due to stress of situation, patient's risk factors, and lack of additional information, we did discuss with the patient inpatient treatment at this time. Patient was in agreement. Patient was instructed to follow-up as an outpatient regarding her anemia. While patient denied any complaints, orthostatic symptoms, melena, or change in periods, this is a change from the last recorded labs in 2018. Patient hemodynamically stable in the emergency room. Impression & Plan Depression, Anxiety, Domestic problems, Anemia Discharge Plan Visit Data *Final* Discharge Date/Time: 10/02/19 10:19 Chief Complaint: Mental Health Evaluation Stated Complaint: 302 ED Provider: Isabel Edwards Discharge Problem: Depression, Anxiety, Domestic problems, Anemia Patient Disposition: Admitted As Inpatient Discharge Instructions Interventions: ED Discharge Assessment Last Done: 10/02/19 10:19 Discharge Problem: Depression Qualifiers: Depression Type: unspecified Qualified Code(s): F32.9 - Major depressive disorder, single episode, unspecified Anemia Qualifiers: Anemia type: unspecified type Qualified Code(s): D64.9 - Anemia, unspecified
[2019-10-02 05:03] LABS: Appearance Urine Clear (Clear); Bilirubin Urine Negative (Negative); Blood Urine Negative (Negative); Color Urine Yellow; Glucose Urine UA Negative (Negative); Ketones Urine Trace (Negative); Leukocyte Esterase Urine Negative (Negative); Nitrite Urine Negative (Negative); Protein Urine Negative (Negative); Specific Gravity Urine 1.027 (1.000-1.030); Urobilinogen Urine Negative (Negative); pH Urine 5.5 (4.5-7.5)
[2019-10-02 05:26] LABS: Amphetamines+Metham, Urine Neg (Neg); Barbiturates, Urine Neg (Neg); Benzodiazepine, Urine Neg (Neg); Cocaine, Urine Neg (Neg); MDMA (Ecstacy), Urine Neg (Neg); Methadone, Urine Neg (Neg); Opiate, Urine Neg (Neg); Phencyclidine, Urine Neg (Neg)
[2019-10-02 05:44] LABS: Basophils # (auto) 0.03 K/uL (0-0.2); Basophils % (auto) 0.2 %; Eosinophils # (auto) 0.03 K/uL (0-0.5); Eosinophils % (auto) 0.2 %; Hemoglobin 9.5 g/dL (12.0-16.0); Immature Granulocytes # (auto) 0.03 K/uL (0.00-0.02); Immature Granulocytes % (auto) 0.2 %; Lymphocytes # (auto) 1.82 K/uL (1.2-3.4); Lymphocytes % (auto) 14.9 %; Mean Corpuscular Hemoglobin 22.8 pg (25-34); Mean Corpuscular Hgb Conc 30.6 g/dL (32-36); Mean Corpuscular Volume 74.5 fL (80-100); Mean Platelet Volume 8.9 fL (7.4-10.4); Monocytes % (auto) 6.5 %; Neutrophils # (auto) 9.51 K/uL (1.4-6.5); Platelet Count 434 K/uL (130-400); RDW Standard Deviation 40.6 fL (36.4-46.3); Red Blood Count 4.16 M/uL (4.2-5.4); White Blood Count 12.22 K/uL (4.8-10.8)
[2019-10-02 06:01] LABS: Albumin Level 3.9 gm/dl (3.4-5.0); BUN Creatinine Ratio 14.6 (10-20); Creatinine Clr Calc Pharmacy 103.4 ml/min; Est GFR (Non-African American) 84.5; Potassium 3.8 mmol/L (3.5-5.1)
[2019-10-02 06:05] LABS: Pregnancy Test, Serum Negative (Negative)
[2019-10-02 06:12] LABS: Albumin Globulin Ratio 1.1 (0.9-2); Bilirubin,Total 0.3 mg/dl (0.2-1); Globulin 3.6 gm/dl (2.5-4.0); Ovalocytes 1+; Thyroid Stimulating Hormone 1.27 uIu/ml (0.300-4.500); Total Protein 7.5 gm/dl (6.4-8.2)
[2019-10-02 06:31] LABS: Acetaminophen < 2 ug/ml (10-30); Salicylate < 1.7 mg/dl (2.8-20)
--- NOTE | 2019-10-02 08:24 | Communication Note ---
Date of Service: October 02, 2019 Reviewed chart and discussed case with liaison nurse and ER attending Dr. Zimmerman. Recommend inpatient treatment as patient has multiple risk factors for suicide including psychiatric diagnosis, relationship discord (, parents), access to guns, family history of suicide (brother), and threats of suicide (per , although patient disputes). Per Dr. Zimmerman she is asking to leave as today is her son's birthday and she doesn't want to be admitted as fears it will impact her job. Recommendation is for inpatient psychiatric treatment to mitigate the above risk factors, with involvement of family, confirmation that guns are secured, and coordination with her outpatient therapist and psychiatrist.
[2019-10-02] MEDS ORDERED: FLUOXETINE HCL 20 MG CAP PO ONE (09:50)
[2019-10-02] MEDS ORDERED: BISMUTH SUBSALICYLATE PER ML OMNICELL CHARGE PO PRN (09:57)
[2019-10-02] MEDS ORDERED: MAGNESIUM HYDROXIDE SUSP 30 ML UDC PO PRN (09:57)
[2019-10-02] MEDS ORDERED: ACETAMINOPHEN 325 MG TAB PO PRN (09:57)
[2019-10-02] MEDS ORDERED: SODIUM CHLORIDE 0.65% NA SOLN 45 ML (OCEAN) PRN (09:57)
[2019-10-02] MEDS ORDERED: ALUMINUM/MAGNESIUM SUSP 30 ML UDC PO PRN (09:57)
--- NOTE | 2019-10-02 10:22 | Emergency Department Note ---
ED Visit Note The patient was signed out to me awaiting mental health evaluation. The patient was admitted to 3 S voluntarily. . : Depression Qualifiers: Depression Type: unspecified Qualified Code(s): F32.9 - Major depressive disorder, single episode, unspecified Anemia Qualifiers: Anemia type: unspecified type Qualified Code(s): D64.9 - Anemia, unspecified
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
[2019-10-02] MEDS ORDERED: ATORVASTATIN 10 MG TAB PO SCH (22:00)
[2019-10-03] MEDS ORDERED: FLUOXETINE HCL 20 MG CAP PO SCH (09:00)
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
== END 2019-10-03 15:15 | disposition home or self-care (01) | DRG 881 ==
LOC: ED 04:36 → 3S 09:57